=== PATIENT | male | born 1965 | race Caucasian/White ===

== ENCOUNTER 2017-04-23 13:17 | Emergency (ER) | payer MEDICAID ==
[~2017-04-23] VITALS: Ht 170.2 cm; Wt 70.5 kg
[2017-04-23 13:19] VITALS: BP 148/98
[2017-04-23] MEDS ORDERED: DIPH,PERTUSS(ACELL),TET VAC/PF 0.5 ML IM-VACC ONE ×2 (14:18→14:30)
[2017-04-23] MEDS ORDERED: KETOROLAC 30 MG/1 ML ONE (14:18)
[2017-04-23 14:23] LABS: HEMATOCRIT 47.3 % (39.2-51.8); HEMOGLOBIN 16.2 g/dL (13.7-18.0); WHITE BLOOD COUNT 8.8 x10^3/uL (3.4-10)
[2017-04-23 14:29] LABS: BLOOD UREA NITROGEN 8 mg/dL (7-18)
[2017-04-23] MEDS ORDERED: KETOROLAC 30 MG/1 ML IM ONE (14:30)
== END 2017-04-23 16:36 | disposition home or self-care (01) ==
LOC: ED 15:44
DX: L03.115 Cellulitis of right lower limb (principal); S99.911A Unspecified injury of right ankle, initial encounter; S80.211A Abrasion, right knee, initial encounter; V03.90XA Pedestrian on foot injured in collision with car, pick-up truck or van, unspecified whether traffic or nontraffic accident, initial encounter; Y93.01 Activity, walking, marching and hiking; Y99.8 Other external cause status; Y92.488 Other paved roadways as the place of occurrence of the external cause
CPT/HCPCS: 36415; 70450; 72125; 73590; 73610; 80048; 80307; 82040; 85025; 90471; 90715; 96372; 99285; J1885; G0479

== ENCOUNTER 2018-01-10 04:59 | Emergency (ER) | payer SELFPAY ==
[~2018-01-10] VITALS: Ht 170.2 cm; Wt 66.0 kg
[2018-01-10] MEDS ORDERED: OXYcodone/APAP 5/325MG TABLET PO ONE (06:00)
[2018-01-10] MEDS ORDERED: OXYcodone/APAP 5/325MG TABLET ONE (06:11)
[2018-01-10 08:40] VITALS: BP 119/78
== END 2018-01-10 08:42 | disposition home or self-care (01) ==
LOC: ED 07:50
DX: M79.605 Pain in left leg (principal); M79.652 Pain in left thigh; I10 Essential (primary) hypertension; F17.200 Nicotine dependence, unspecified, uncomplicated
CPT/HCPCS: 72170; 99284

== ENCOUNTER 2019-02-13 11:35 | Emergency (ER) | payer MEDICAID ==
[~2019-02-13] VITALS: Ht 170.2 cm; Wt 77.5 kg
[2019-02-13 11:38] VITALS: BP 125/85
--- NOTE | 2019-02-13 11:52 | NUR ---
1130 Pt to room; placed in gown; received report from paramedics; SpO2 sensor placed and blood pressure cuff in place; VSS [id number] Provider to room;
[2019-02-13] MEDS ORDERED: NEOSPORIN OINT. PKT 1 PACKET ONE (12:45)
== END 2019-02-13 13:38 | disposition home or self-care (01) ==
LOC: ED 13:36
DX: F10.129 Alcohol abuse with intoxication, unspecified (principal); I10 Essential (primary) hypertension; Z76.0 Encounter for issue of repeat prescription
CPT/HCPCS: 99283

== ENCOUNTER 2019-02-26 17:45 | Emergency (ER) | payer MEDICAID ==
[~2019-02-26] VITALS: Ht 170.2 cm; Wt 80.0 kg
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
[2019-02-26] MEDS ORDERED: OXYcodone/APAP 5/325MG TABLET PO ONE (18:30)
[2019-02-26] MEDS ORDERED: OXYcodone/APAP 5/325MG TABLET ONE (18:31)
--- NOTE | 2019-02-26 18:41 | NUR ---
Patient/Caregiver given discharge instructions and they have confirmed that they understand the instructions. Patient ambulatory with steady gait.
[2019-02-26 19:22] VITALS: BP 110/70
[2019-03-22] MEDS ORDERED: CHLO100T6 PO (07:54)
[2019-03-22] MEDS ORDERED: DULO20CA45 PO (07:54)
[2019-03-22] MEDS ORDERED: MIRT45TA61 PO (07:54)
[2019-03-22] MEDS ORDERED: PRAZ2CAP2 PO (07:54)
== END 2019-02-26 19:29 | disposition home or self-care (01) ==
LOC: ED 18:16
DX: M79.652 Pain in left thigh (principal); I10 Essential (primary) hypertension; W18.30XA Fall on same level, unspecified, initial encounter; Y93.89 Activity, other specified; Y92.89 Other specified places as the place of occurrence of the external cause; Y99.8 Other external cause status
CPT/HCPCS: 99283

== ENCOUNTER 2019-08-06 19:51 | Emergency (ER) | payer MEDICAID ==
[~2019-08-06] VITALS: Ht 170.2 cm; Wt 73.0 kg
[~2019-08-06 19:51] MED LIST: CHLO100T6 PO; DULO20CA45 PO; MIRT45TA61 PO; PRAZ2CAP2 PO
[2019-08-06 19:56] VITALS: BP 150/92
[2019-08-06] MEDS ORDERED: HYDROcodone/APAP 5/325 TABLET PO ONE (21:00)
[2019-08-06] MEDS ORDERED: HYDROcodone/APAP 5/325 TABLET ONE (21:06)
== END 2019-08-06 21:59 | disposition home or self-care (01) ==
LOC: ED 21:53
DX: M79.672 Pain in left foot (principal); M79.671 Pain in right foot; I10 Essential (primary) hypertension; F17.210 Nicotine dependence, cigarettes, uncomplicated; Z59.0 Homelessness
CPT/HCPCS: 99283

== ENCOUNTER 2019-09-05 12:07 | Emergency (ER) | payer MEDICAID ==
[~2019-09-05] VITALS: Ht 167.6 cm; Wt 63.9 kg
[2019-09-05 12:19] VITALS: BP 131/98
[2019-09-05] MEDS ORDERED: APAP/CODEINE 300/30MG TABLET ONE (12:45)
[2019-09-05] MEDS ORDERED: APAP/CODEINE 300/30MG TABLET PO PRN (13:00)
--- NOTE | 2019-09-05 13:14 | NUR ---
Patient given discharge instructions and they have confirmed that they understand the instructions. Patient ambulatory with steady gait.
== END 2019-09-05 13:16 | disposition home or self-care (01) ==
LOC: ED 12:50
DX: K02.9 Dental caries, unspecified (principal); F17.200 Nicotine dependence, unspecified, uncomplicated
CPT/HCPCS: 99283

== ENCOUNTER 2019-09-08 04:04 | Emergency (ER) | payer MEDICAID ==
[~2019-09-08] VITALS: Ht 170.2 cm; Wt 66.3 kg
[2019-09-08 04:22] VITALS: BP 133/90
--- NOTE | 2019-09-08 04:37 | NUR ---
"i feel like dying, jumping off the [place] of [place]" x 2 months
== END 2019-09-08 05:10 | disposition home or self-care (01) ==
LOC: ED 05:04
DX: R45.851 Suicidal ideations (principal); Z59.0 Homelessness; I10 Essential (primary) hypertension; F17.200 Nicotine dependence, unspecified, uncomplicated
CPT/HCPCS: 99281

== ENCOUNTER 2019-11-11 14:59 | Emergency (ER) | payer MEDICAID ==
[~2019-11-11] VITALS: Ht 170.2 cm; Wt 69.0 kg
[2019-11-11 15:14] VITALS: BP 165/97
[2019-11-11 15:20] LABS: BASOPHILS # (AUTO) 0.02 x10^3/uL (0-0.1); BASOPHILS % (AUTO) 0 % (0-1); EOSINOPHILS % (AUTO) 2 % (1-7); LYMPHOCYTES # (AUTO) 1.64 x10^3/uL (1-3.4); LYMPHOCYTES % (AUTO) 33 % (22-44); MD NO; MEAN CORPUSCULAR HEMOGLOBIN 30.5 pg (27.5-34.5); MEAN CORPUSCULAR HGB CONC 33.7 g/dL (33.2-36.2); MEAN CORPUSCULAR VOLUME 90.6 fL (81-97); MONOCYTES # (AUTO) 0.34 x10^3/uL (0.2-0.8); MONOCYTES % (AUTO) 7 % (2-9); NEUTROPHILS # (AUTO) 2.81 x10^3/uL (1.8-6.8); NEUTROPHILS % (AUTO) 57 % (42-75); PLATELET COUNT 259 x10^3/uL (130-400); RED BLOOD COUNT 4.63 x10^6/uL (4.38-5.82); RED CELL DISTRIBUTION WIDTH 13.8 % (9.4-14.8)
--- NOTE | 2019-11-11 15:22 | NUR ---
TASK RN: REPORT TO PRIMARY RN.
[2019-11-11 15:30] LABS: ALANINE AMINOTRANSFERASE 43 U/L (12-78); ALBUMIN 3.5 g/dL (3.4-5.0); ANION GAP 6 mmol/L (5-15); CALCIUM 8.7 mg/dL (8.5-10.1); CHLORIDE 108 mmol/L (98-107)
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
[2019-11-11 15:32] LABS: ALKALINE PHOSPHATASE 73 U/L (45-117); BILIRUBIN,TOTAL 0.4 mg/dL (0.2-1.0); CREATININE 0.77 mg/dL (0.7-1.3); TOTAL PROTEIN 7.1 g/dL (6.4-8.2)
[2019-11-11 15:36] LABS: SALICYLATE LEVEL < 1.7 mg/dL (2.8-20.0)
--- NOTE | 2019-11-11 15:37 | NUR ---
Ordered pt food tray.
[2019-11-11 15:49] LABS: AMPHETAMINE SCREEN, URINE Negative (Negative); BARBITURATE SCREEN, URINE Negative (Negative); BENZODIAZEPINE SCREEN, URINE Negative (Negative); CANNABINOID SCREEN, URINE Positive (Negative); COCAINE SCREEN, URINE Negative (Negative); METHADONE SCREEN, URINE Negative (Negative); OPIATE SCREEN, URINE Negative (Negative)
--- NOTE | 2019-11-11 16:00 | NUR ---
BREAKER TABLE WORKER: ELE REQUESTED. ROOM SECURE. PT IN [place] ROOM AT THIS TIME
--- NOTE | 2019-11-11 16:01 | NUR ---
soc called for consult
--- NOTE | 2019-11-11 16:47 | NUR ---
Spoke with SOC Dr. Eldridge via phone about pt. Pt remains pacing in room, asking for food, food tray ordered. Sitter requested. Tele psych unit in pt's room. SOC Dr. Eldridge will call back after tele psych assessment. Cont to monitor.
--- NOTE | 2019-11-11 17:11 | NUR ---
Contacted diet office three times. On third call left voicemail requesting update for STAT SI food tray ordered at [phone].
--- NOTE | 2019-11-11 17:24 | NUR ---
Pt to be psych hold per SOC Dr. Eldridge. Pt remains in secured room, belongings locked in locker for pt pt safety. Pt currently resting in bed. Will deliver pt food when arrived. Awaiting sitter, pt remains in camera monitored room.
--- NOTE | 2019-11-11 17:37 | NUR ---
Pt given food tray.
--- NOTE | 2019-11-11 18:10 | NUR ---
PACKET FAXED TO [facility], [facility] AND [facility]
--- NOTE | 2019-11-11 18:32 | NUR ---
Sitter at bedisde. Pt sleeping in bed, no distress. Room remains secured. Cont to monitor.
--- NOTE | 2019-11-11 19:00 | NUR ---
Report given to Jocelyn GREENBERG.
--- NOTE | 2019-11-11 19:06 | NUR ---
Report received from YARI Sanches
--- NOTE | 2019-11-11 19:07 | NUR ---
PATIENT ACCEPTED AT [facility]
--- NOTE | 2019-11-11 20:24 | NUR ---
REPORT GIVEN TO CESILIA AT [facility]
--- NOTE | 2019-11-11 20:32 | NUR ---
FREDDIE auth code [id number]
--- NOTE | 2019-11-11 20:45 | NUR ---
PATIENT MABULATORY WITH STEADY GAIT WITH [facility]
--- NOTE | 2019-11-11 20:45 | NUR ---
[facility] HERE TO TRANSPORT PATIENT TO [facility]
== END 2019-11-11 20:50 ==
LOC: ED 15:30
DX: R45.851 Suicidal ideations (principal); F32.9 Major depressive disorder, single episode, unspecified; F29 Unspecified psychosis not due to a substance or known physiological condition; I10 Essential (primary) hypertension
CPT/HCPCS: 36415; 80053; 80307; 85025; 99285

== ENCOUNTER 2020-06-28 08:50 | Inpatient (IN) | payer MEDICAID ==
[~2020-06-28] VITALS: Ht 170.2 cm; Wt 59.6 kg
--- NOTE | 2020-06-28 09:15 | NUR ---
PT LAYING RECLINED IN BED, NOSE CLAMP APPLIED. ADDITIONAL GAUZE AND EMESIS BAG PROVIDED FOR PT TO SPIT INTO. PT REMAINS TIRED AND IRRITABLE. PER [facility] PT WAS ALERT AND AGGITATED. IV START, LABS DRAWN. AWAITING ERMD EVALUATION.
[2020-06-28] MEDS ORDERED: SODIUM CHLORIDE FLUSH 10ML SYR IVF ONE (10:00)
[2020-06-28] MEDS ORDERED: SODIUM CHLORIDE 0.9% 1,000ML IVBOLUS ONE (10:00)
[2020-06-28] MEDS ORDERED: NALOXONE 0.4 MG/ML, 1ML IVPush PRN (10:00)
[2020-06-28] MEDS ORDERED: COCAINE TOPICAL SOLN 4%, 4ML TP ONE (10:00)
[2020-06-28] MEDS ORDERED: NALOXONE 0.4 MG/ML, 1ML ONE (10:10)
[2020-06-28] MEDS ORDERED: COCAINE TOPICAL SOLN 4%, 4ML ONE (10:11)
[2020-06-28 10:21] LABS: BASOPHILS % (AUTO) 1 % (0-1); EOSINOPHILS % (AUTO) 1 % (1-7); LYMPHOCYTES % (AUTO) 25 % (22-44); MEAN CORPUSCULAR HEMOGLOBIN 30.5 pg (27.5-34.5); MEAN CORPUSCULAR HGB CONC 34.7 g/dL (33.2-36.2); MEAN PLATELET VOLUME 7.9 fL (7.4-10.4); MONOCYTES % (AUTO) 8 % (2-9); NEUTROPHILS % (AUTO) 66 % (42-75); PLATELET COUNT 304 x10^3/uL (130-400); RED BLOOD COUNT 3.36 x10^6/uL (4.38-5.82); RED CELL DISTRIBUTION WIDTH 13.7 % (9.4-14.8)
--- NOTE | 2020-06-28 10:21 | NUR ---
PT RECLINED IN BED, IVF INFUSION RUNNING. PT CONTINUES WITH EPISTAXIS. ERMD AWARE. NO CHANGE FOLLOWING [facility] ADMINISTRATION.
[2020-06-28 10:23] LABS: MD NO
[2020-06-28 10:29] LABS: ALBUMIN 2.9 g/dL (3.4-5.0); ANION GAP 7 mmol/L (5-15); CALCIUM 8.2 mg/dL (8.5-10.1); CHLORIDE 105 mmol/L (98-107)
[2020-06-28 10:30] LABS: CREATININE 0.79 mg/dL (0.7-1.3)
[2020-06-28 10:36] LABS: INTERNATIONAL NORMALIZED RATIO 1.05 (0.93-1.1); PROTHROMBIN TIME 11.1 Seconds (9.6-11.5)
--- NOTE | 2020-06-28 11:04 | NUR ---
PT LAYING IN BED, REQUESTS MILK. PT EDUCATED ON NEED TO TALK WITH ERMD AND ALLOW FOR CARE PRIOR TO PO NUTRITION. PT VERBALIZES AWARENESS. NO NEW EPISTAXIS NOTED.
--- NOTE | 2020-06-28 11:47 | NUR ---
THIRD ATTEMPT TO CLEAN PT'S FACE AND HANDS. PT SHOUTS AT RN, CONCERNED THAT CLEANING WITH CAUSE REPEAT EPISTAXIS. RN CLEANED FACE OFF MUCH PT WOULD ALLOW. PT REFUSES ALL CLEANSING ON UPPER LIP AND AROUND NOSTRILS. ALSO REFUSING TO HAVE HANDS CLEANSED. SHOUTS AND JUMPS IN BED.
--- NOTE | 2020-06-28 12:48 | NUR ---
PT REMAINS EPISTAXIS-FREE. DOES NOT COMMUNICATE WELL WITH PROVIDERS, AGGITATED WHEN HE WAKES. CONTINUES TO REFUSE CLEANSING CARE AROUND NOSE.
--- NOTE | 2020-06-28 14:02 | NUR ---
DISCUSSION WITH DIRECTOR TELEHEALTH REGARDING PT'S STATUS. PT REMAINS LETHARGIC, AWAKENS TO NAME, BUT QUICKLY DOZES OFF. SPEECH IS UNCLEAR. PUPILS PERRL.
--- NOTE | 2020-06-28 14:20 | NUR ---
RN AND SECURITY TECH TO BEDSIDE AND ASSIST WITH AMBULATION TEST. PT UNABLE TO AMBULATE INDEPENDENTLY. TAKEN TO SINK TO RINSE MOUTH. PT ALSO USED BEDSIDE URINAL WITH ASSISTANCE. PT WALKED BACK TO BED BY RN AND SECURITY TECH. PLACED BACK ON MONITORS.
--- NOTE | 2020-06-28 14:26 | NUR ---
ERMD RE-UPDATED ON PT'S STATUS. AWAITING FURTHER ORDERS.
[2020-06-28 14:54] LABS: AMPHETAMINE SCREEN, URINE Positive (Negative); BARBITURATE SCREEN, URINE Negative (Negative); BENZODIAZEPINE SCREEN, URINE Negative (Negative); CANNABINOID SCREEN, URINE Positive (Negative); COCAINE SCREEN, URINE Negative (Negative); METHADONE SCREEN, URINE Negative (Negative); OPIATE SCREEN, URINE Negative (Negative)
--- NOTE | 2020-06-28 15:03 | NUR ---
PT LAYING BACK IN BED, AWAITING CT SCAN. DENIES PAIN.
--- NOTE | 2020-06-28 16:00 | NUR ---
PT ASLEEP IN BED, RESPIRATIONS EVEN AND UNLABORED ON RA SATURATING WELL. NAD NOTED AT THIS TIME. AWAITING ERMD RECHECK.
--- NOTE | 2020-06-28 16:36 | NUR ---
ATTEMPT TO AMBULATE WITH PLANT AND MACHINERY VALUER AND ED RN, PT NEEDED ASSISTANCE TO SINK FOR 4 STEPS. PT RINSED MOUTH AND WAS UNABLE TO CONTINUE AMBULATING, REMAINED UNSTEADY.
--- NOTE | 2020-06-28 17:24 | NUR ---
HOSPITALIST AT BEDSIDE FOR ASSESSMENT OF PT.
[2020-06-28] MEDS ORDERED: ACETAMINOPHEN 325 MG TABLET PO PRN (17:30)
[2020-06-28] MEDS ORDERED: LIDODERM 5% PATCH TD PRN (17:30)
[2020-06-28] MEDS ORDERED: ENALAPRILAT 1.25 MG/ML, 2ML IVPush PRN (17:30)
[2020-06-28] MEDS ORDERED: GUAIFENESIN/DM 200-20MG, 10ML UDC PO PRN (17:30)
[2020-06-28] MEDS ORDERED: DOCUSATE 100 MG CAPSULE PO PRN (17:30)
[2020-06-28] MEDS ORDERED: MELATONIN 5 MG TABLET PO PRN (17:30)
[2020-06-28] MEDS: LACTATED RINGERS 1,000 ML IV SCH (17:48)
--- NOTE | 2020-06-28 17:55 | NUR ---
DIET TRAY ORDERED. PO FLUIDS GIVEN. PT VERY IRRITABLE WITH STAFF, SHOUTING AND CURSING AT RN AND REAL ESTATE MARKETING COORDINATOR.
--- NOTE | 2020-06-28 18:10 | NUR ---
REPORT TO YARI DIOR.
--- NOTE | 2020-06-28 18:33 | NUR ---
PT PROVIDED WITH MEAL TRAY AND BLANKETS PER REQUEST
[2020-06-28] MEDS: MIRTAZAPINE 15 MG TABLET PO SCH (21:23)
[2020-06-28 21:47] VITALS: BP 126/90
[2020-06-28 22:33] VITALS: BP 126/86
[2020-06-28 22:53] VITALS: BP 153/79
[2020-06-28] MEDS: PRAZOSIN 2 MG CAPSULE PO SCH (23:13)
[2020-06-28] MEDS: CHLORPROMAZINE 100MG TAB PO SCH (23:13)
[2020-06-29] VITALS (17 sets, daily range): BP systolic 93–126; BP diastolic 59–81
[2020-06-29] MEDS ORDERED: NALOXONE 1 MG/ML, 2ML IVPush PRN (01:00)
[2020-06-29] MEDS ORDERED: SODIUM CHLORIDE 0.9% 1,000 ML IVBOLUS PRN (01:00)
[2020-06-29] MEDS ORDERED: MIDAZOLAM 1 MG/ML, 5ML ONE (01:36)
[2020-06-29] MEDS: MIDAZOLAM 1 MG/ML, 2ML IVPush PRN ×2 (02:00→02:30)
[2020-06-29 03:17] LABS: HCT (SEDRATE) 21.6 % (39.2-51.8)
[2020-06-29 03:20] LABS: ALANINE AMINOTRANSFERASE 33 U/L (12-78); ALBUMIN 2.4 g/dL (3.4-5.0); ANION GAP 6 mmol/L (5-15); C-REACTIVE PROTEIN, QUANT 0.05 mg/dL (0.02-0.49); CALCIUM 7.6 mg/dL (8.5-10.1); CHLORIDE 111 mmol/L (98-107)
[2020-06-29 03:25] LABS: ALKALINE PHOSPHATASE 55 U/L (45-117); BILIRUBIN,TOTAL 0.4 mg/dL (0.2-1.0); CREATININE 0.73 mg/dL (0.7-1.3); TOTAL PROTEIN 4.9 g/dL (6.4-8.2); TROPONIN I 0.172 ng/mL (0.000-0.045)
[2020-06-29] MEDS: CHLORPROMAZINE 100MG TAB PO SCH ×3 (08:46→22:23)
[2020-06-29] MEDS: DULOXETINE 30 MG CAPSULE.DR PO SCH (08:46)
[2020-06-29] MEDS: LACTATED RINGERS 1,000 ML IV SCH (09:31)
[2020-06-29] MEDS ORDERED: MAGNESIUM SULFATE PMX 2GM/50ML 50 ML IV ONE (10:00)
[2020-06-29 10:32] LABS: MICROSCOPIC NOT IND
[2020-06-29 10:37] LABS: TROPONIN I 0.175 ng/mL (0.000-0.045)
[2020-06-29] MEDS: MIRTAZAPINE 15 MG TABLET PO SCH (22:23)
[2020-06-29] MEDS: PRAZOSIN 2 MG CAPSULE PO SCH (22:23)
[2020-06-30] VITALS (10 sets, daily range): BP systolic 99–153; BP diastolic 61–94
[2020-06-30] MEDS: CHLORPROMAZINE 100MG TAB PO SCH ×3 (10:10→20:37)
[2020-06-30] MEDS: DULOXETINE 30 MG CAPSULE.DR PO SCH (10:10)
[2020-06-30 13:00] LABS: CALCIUM 8.2 mg/dL (8.5-10.1); CREATININE 0.58 mg/dL (0.7-1.3)
[2020-06-30 13:05] LABS: BASOPHILS % (AUTO) 1 % (0-1); EOSINOPHILS % (AUTO) 1 % (1-7); LYMPHOCYTES % (AUTO) 30 % (22-44); MEAN CORPUSCULAR HEMOGLOBIN 30.7 pg (27.5-34.5); MEAN CORPUSCULAR HGB CONC 34.7 g/dL (33.2-36.2); MEAN PLATELET VOLUME 7.7 fL (7.4-10.4); MONOCYTES % (AUTO) 8 % (2-9); NEUTROPHILS % (AUTO) 60 % (42-75); PLATELET COUNT 203 x10^3/uL (130-400); RED BLOOD COUNT 2.96 x10^6/uL (4.38-5.82); RED CELL DISTRIBUTION WIDTH 13.8 % (9.4-14.8)
[2020-06-30 13:08] LABS: MD NO
[2020-06-30 13:20] LABS: ANION GAP 4 mmol/L (5-15); CHLORIDE 109 mmol/L (98-107)
[2020-06-30] MEDS: MIRTAZAPINE 15 MG TABLET PO SCH (20:37)
[2020-06-30] MEDS: PRAZOSIN 2 MG CAPSULE PO SCH (20:37)
[2020-07-01 01:19] VITALS: BP 114/80
[2020-07-01 02:34] LABS: CALCIUM 7.9 mg/dL (8.5-10.1); CREATININE 0.73 mg/dL (0.7-1.3)
[2020-07-01 02:41] LABS: ANION GAP 3 mmol/L (5-15); CHLORIDE 110 mmol/L (98-107)
[2020-07-01 06:02] LABS: BASOPHILS % (AUTO) 1 % (0-1); EOSINOPHILS % (AUTO) 2 % (1-7); LYMPHOCYTES % (AUTO) 35 % (22-44); MEAN CORPUSCULAR HEMOGLOBIN 31.4 pg (27.5-34.5); MEAN CORPUSCULAR HGB CONC 35.3 g/dL (33.2-36.2); MEAN PLATELET VOLUME 7.8 fL (7.4-10.4); MONOCYTES % (AUTO) 9 % (2-9); NEUTROPHILS % (AUTO) 54 % (42-75); PLATELET COUNT 210 x10^3/uL (130-400); RED BLOOD COUNT 2.91 x10^6/uL (4.38-5.82); RED CELL DISTRIBUTION WIDTH 13.9 % (9.4-14.8)
[2020-07-01 06:11] LABS: MD NO
[2020-07-01 07:48] VITALS: BP 122/76
[2020-07-01] MEDS: CHLORPROMAZINE 100MG TAB PO SCH ×2 (09:00→09:47)
[2020-07-01] MEDS: DULOXETINE 30 MG CAPSULE.DR PO SCH ×2 (09:00→09:47)
== END 2020-07-01 11:30 | disposition home or self-care (01) | DRG 151 ==
LOC: ED 11:03 → INTOOBSV 16:50 → EDIP 16:50 → OBSVTOIN 16:50 → SUATTDRO 17:06 → 3N 22:43 → 5SO 06-29 02:10
PROVIDERS: ADMIT Hospitalist; ATTEND Hospitalist
PROC: 30233N1 Transfusion of Nonautologous Red Blood Cells into Peripheral Vein, Percutaneous Approach (ICD-10-PCS; principal; 2020-06-28)
DX: R04.0 Epistaxis (principal); D62 Acute posthemorrhagic anemia; E86.0 Dehydration; F17.200 Nicotine dependence, unspecified, uncomplicated; F20.9 Schizophrenia, unspecified; F31.9 Bipolar disorder, unspecified; F43.10 Post-traumatic stress disorder, unspecified; I10 Essential (primary) hypertension; Z59.0 Homelessness
CPT/HCPCS: 36415; 70450; 71045; 80048; 80053; 80307; 80320; 81003; 82040; 82140; 82533; 82607; 82947; 82962; 83010; 83605; 83615; 83735; 83880; 84100; 84145; 84443; 84484; 85014; 85018; 85025; 85610; 85651; 85730; 86140; 86850; 86900; 86923; 93005; 93306; G0378; J2250; J2310; G0480; J3475; J7030; J7120; P9016